=== PATIENT | male | born 1945 | race Caucasian/White ===

== ENCOUNTER → 2016-09-25 | Day surgery (SDC) | payer BC ==
[~2016-09-25] MED LIST: ACETAMINOPHEN/HYDROcodone 325 MG/5 MG TAB ONE; BUPIVACAINE/EPINEPHRINE 0.5% 50 ML VIAL ONE; LACTATED RINGER'S 1000 ML INJ 1,000 ML ONE; MIDAZOLAM HCL 2 MG/2 ML VIAL ONE; PROPOFOL 200 MG/20 ML AMP IV ONE; ceFAZolin INJ 1,000 MG VIAL ONE
--- NOTE | 2016-09-25 14:49 | TN ---
cc: AMANDA BOYD DATE OF SURGERY: 09/25/2016. Cc: Ancillary wound to be a ALL MINDY PREOPERATIVE DIAGNOSIS: 1. Internal derangement left knee. 2. Probable loose body left knee. POSTOPERATIVE DIAGNOSIS: 1. Loose body suprapatellar pouch, left knee. 2. Osteophyte left knee. 3. Degenerative tear of the medial meniscus, left knee. OPERATIVE PROCEDURE PERFORMED: 1. Arthroscopy, left knee. 2. Arthroscopic removal of loose body suprapatellar pouch. 3. Partial medial meniscectomy. SURGEON: Amanda oByd MD. ANESTHESIA: General. ESTIMATED BLOOD LOSS: Minimal. INDICATIONS FOR THE PROCEDURE: This patient is a 70-year-old male with catching, locking and pain. Investigative studies show evidence of A loose body IN THE cephalad portion of the knee in the suprapatellar pouch. He now presents for surgical treatment. DESCRIPTION OF THE PROCEDURE IN DETAIL: The patient was brought to the operating room and anesthetized in the supine position. The left leg was scrubbed with alcohol followed by Hibiclens followed Chloraprep and draped sterilely. The arthroscopy moss was utilized. A time-out was done. Antibiotics were given within one hour time window. Inflow was established anterior and laterally. The suprapatellar pouch was explored. There was a loose body in the cephalad portion that later on measured 1.5 x 1.2 cm. A spinal needle was introduced right adjacent to this. This was grabbed with a forceps grabber and then removed and taken to the back table to be sent out for pathology. The suprapatellar pouch was otherwise unremarkable. The right patellar surface showed grade 4 changes. There were no loose bodies in the medial or lateral gutters at that point. The medial compartment showed evidence of a degenerative medial meniscus tear with a small radial tear and fissuring. The anterior cruciate ligament was normal. The lateral compartment showed some degenerative changes with calcification consistent with probable gout versus chondrocalcinosis. A separate spinal needle was introduced along the medial joint line. A separate incision was made. Straight and angled punches were used to take the meniscus back to stable rim on the medial meniscus. A shaver was used to do some additional shaving of that region. A minor abrasion chondroplasty was performed. The wound was irrigated copiously. The portals were injected with 0.5% Marcaine with epinephrine. They were closed with Steri-Strips and Benzoin. A sterile dressing was applied. The patient was awakened and taken to the recovery room in satisfactory condition. MD KEVIN Burdick/DEBBI /2:30 PM /2:41 PM
== END | disposition home or self-care (01) ==
LOC: ESDC 11:39
PROVIDERS: ATTEND Orthopaedic Surgery Orthopaedic Surgery of the Spine
DX: S83.242A Other tear of medial meniscus, current injury, left knee, initial encounter (principal); M25.762 Osteophyte, left knee
CPT/HCPCS: 01400; 29881; 88300; 88304; 88311; J0690; J2250; J3010; J7120

== ENCOUNTER 2016-11-26 15:56 | Inpatient (IN) | payer MEDICARE ==
[~2016-11-26] VITALS: Ht 182.9 cm; Wt 84.7 kg
[2016-11-30] MEDS ORDERED: ALPR0.25 PO (10:17)
[2016-11-30] MEDS ORDERED: GRAP50CA3 PO (10:17)
[2016-11-30] MEDS ORDERED: DICL75TA PO (10:17)
[2016-11-30] MEDS ORDERED: ASPI-110 PO (10:17)
[2016-11-30] MEDS ORDERED: CYAN50003 PO (10:17)
[2016-11-30] MEDS ORDERED: OMEP40CA2 PO (10:17)
[2016-11-30] MEDS ORDERED: TURM500C3 PO (10:17)
[2016-11-30] MEDS ORDERED: AMLO5TAB2 PO (10:17)
[2016-11-30] MEDS ORDERED: GLUCTAB6 PO (10:17)
[2016-11-30] MEDS ORDERED: LISI40TA PO (10:17)
[2016-12-08 07:32] VITALS: BP 142/75; PULSE 61; RESP 20; TEMP 98.2; O2SAT 96
[2016-12-08] MEDS ORDERED: VANCOMYCIN HCL 1000 MG VIAL ONE (07:35)
[2016-12-08] MEDS ORDERED: SODIUM CHLOR 0.9% 250 ML INJ 250 ML ONE (07:35)
[2016-12-08] MEDS ORDERED: EXPAREL PERI-ARTICULAR INJECTION (TOTAL VOL. 60 ML) P-ARTICULR SCH ×2 (08:00)
[2016-12-08] MEDS ORDERED: METOPROLOL TARTRATE 25 MG TAB PO PRN (08:00)
[2016-12-08] MEDS ORDERED: CHLORHEXIDINE GLUCONATE 2 % 1 PACK (2 CLOTHS) TOPICAL PRN (08:00)
[2016-12-08] MEDS ORDERED: LACTATED RINGER'S 1000 ML IV PRN (08:00)
[2016-12-08] MEDS ORDERED: TRANEXAMIC ACID INJ 807 MG in SODIUM CHLORIDE 0.9% INJ 100 ML IV SCH ×2 (08:00→12:45)
[2016-12-08] MEDS ORDERED: INSULIN HUMAN REGULAR 1,000 UNITS/10 ML VIAL SQ PRN (08:00)
[2016-12-08] MEDS ORDERED: POVIDONE IODINE 5% (ANTISEPSIS KIT) 4 APPLICATIONS EACH NARE PRN (08:00)
[2016-12-08] MEDS ORDERED: VANCOMYCIN 1000 MG/NS 250 ML (for <70 kg) IV SCH ×2 (08:00)
[2016-12-08] MEDS ORDERED: ceFAZolin 2 GM PREMIX 50 ML IV SCH (08:00)
[2016-12-08] MEDS ORDERED: POVIDONE IODINE 7.5% SCRUB 118 ML BOTTLE TOPICAL SCH (08:00)
[2016-12-08] MEDS ORDERED: SODIUM CHLORID 0.9% 500 ML IV PRN (08:00)
--- NOTE | 2016-12-08 08:17 | MH ---
cc: AMANDA BOYD M.D. DATE OF ADMISSION: 12/08/2016 ADMITTING DIAGNOSIS Left hip osteoarthritis. HISTORY This is a 70-year-old male with significant left hip pain. Investigative studies show evidence of extensive arthritis of the left hip. Despite conservative care the patient is painful and symptomatic. He presents now for surgical treatment. PAST MEDICAL HISTORY, SOCIAL HISTORY, FAMILY HISTORY, REVIEW OF SYSTEMS See attached notes. PHYSICAL EXAMINATION GENERAL: A 70-year-old male in moderate distress with his left hip. HEENT: Normocephalic, atraumatic. Pupils equal, round, reactive to light and accommodation. Extraocular motions intact. NECK: Supple. CHEST: Clear. HEART: Regular rate and rhythm. ABDOMEN: Soft, nontender with normoactive bowel sounds. MUSCULOSKELETAL EXAMINATION: Left hip pain with range of motion, especially with internal and external rotation. Mild flexion contracture is seen. Neurologic and vascular examination is within normal limits. IMPRESSION Osteoarthritis left hip. PLAN Left total hip replacement plasty CONSENT There are risks with surgery including infection, bleeding, loss of motion, continued pain, need for further surgery, neurologic and vascular injury. The patient understands these issues and wishes to press on with surgery as outlined above. MD KEVIN Burdick/DOLORES /10:48 PM /8:17 AM
[2016-12-08] MEDS ORDERED: GENTAMICIN SULFATE 80 MG/2 ML VIAL ONE (08:20)
[2016-12-08] MEDS ORDERED: ACETAMINOPHEN 1000 MG/100 ML VIAL IV ONE (08:24)
[2016-12-08] MEDS ORDERED: MIDAZOLAM HCL 2 MG/2 ML VIAL ONE (08:59)
[2016-12-08] MEDS ORDERED: FAMOTIDINE 20 MG/2 ML VIAL ONE (08:59)
--- NOTE | 2016-12-08 11:48 | EKG ---
Date Performed: 12/08/2016 Time Performed: 08:07:25 PTAGE: 70 years EKG: SINUS BRADYCARDIA BORDERLINE LEFT AXIS DEVIATION INCOMPLETE RIGHT BUNDLE BRANCH BLOCK GABRIELLE STEINBERG ECG NO PREVIOUS TRACING DOCTOR: Reagan Cassidy Interpretating Date/Time 12/08/2016 11:47:15
--- NOTE | 2016-12-08 12:28 | PD.OP ---
cc: Kamron Thompson MD Operative Report Date of Surgery: Dec 08, 2016 Preoperative Diagnosis: Osteoarthritis left hip, severe. Left hip acetabular dysplasia, severe Postoperative Diagnosis: Same Procedure: Left total hip replacement arthroplasty, direct anterior exposure Anesthesia: Gen. Surgeon: Kamron Thompson Pharmaceutical Sales Representative(s): ROSA Rhoades Operation and Findings: EBL: 500 cc INDICATION: This patient presents with significant hip pain related to severe osteoarthritis of left hip with evidence of acetabular dysplasia and very large circumferential osteophytes. Despite extensive conservative care this patient continues to be painful and now presents for surgical treatment. NOTE: Martha Rhoades PA-C was present for the entire surgical procedure as my first leveler. In my medical opinion her skill and care was necessary for the proper management of this patient. COMPONENTS: COMPANY: [employer] CUP: [place], 56, 100 series, gription surface LINER: Altrx 36+4, neutral STEM: Corail, size 13, standard offset, hydroxyapatite-coated HEAD: +8.5, 36, 12/14 taper PROCEDURE: This patient was brought to the operating room and anesthetized in the supine position and positioned on the fracture table with both legs held extended. The left hip and leg was scrubbed with alcohol followed by Hibiclens followed by ChloraPrep and draped sterilely. Antibiotics were given within routine time window and a timeout was done. A 4 inch incision was made starting 2 cm distal and 2 cm lateral to the anterior superior iliac spine. The fascia vasquez was opened longitudinally. The interval between the fascia vasquez and the rectus was opened down to the capsule of the hip joint. Retractors were positioned allowing good visualization of the capsule. This was opened longitudinally and flaps were created. Stay sutures were utilized. Exposure was excellent. The neck was cut at the proper location using fluoroscopy as a guide. The head was removed. Deep retractors were positioned allowing good visualization of the acetabulum. There were large circumferential osteophytes. An osteotome was used to remove some of anterior osteophytes allowing better exposure. We were able to start a small cup and a very low position and under fluoroscopy were able to confirm bringing it down to the floor in the normal to slightly high center rotation. Acetabulum was deepened down to the floor starting with a proper size reamer and reaming up to 55 mm. A trial was utilized. Fluoroscopy was used to check position and confirmed satisfactory alignment. The rim was reamed with a 56 mm reamer and the final cup was positioned in approximately 20 of anteversion and 40-45 of abduction. Position was satisfactory. A single hole eliminator was positioned followed by the final liner. The lifting hook was utilized. The leg was dropped to the floor, maximally externally rotated and brought across the midline. Retractors were positioned. A box osteotome was utilized followed by progressive broaching to the proper stem size. Trial reduction showed excellent alignment and fit. With 60 of external rotation the leg was dropped to the floor without evidence of anterior subluxation. The wound was irrigated. The final stem was inserted and was found to be very stable. The final reduction using the final head. Stability was as previously noted. Intraoperative x-rays were taken. The wound was irrigated copiously. Hemostasis was controlled. Local anesthesia was utilized. The capsule was repaired with #2 Tycron sutures. The fascia vasquez was repaired with running 0 PDS on a loop. Subcutaneous tissue was approximated with 2-0 Vicryl and skin with running intradermal 3-0 Vicryl followed by Steri-Strips. A sterile dressing was applied. The patient was awakened and taken to the recovery room in satisfactory condition. FINDINGS: There was a large circumferential osteophytes anterior inferior cephalad and posterior which were removed with an osteotome and Montes. We used a +4 liner to bring the hip center down because of medial cup placement allowing proper cephalad coverage because the patient is loss of bone related to acetabular dysplasia. The final solution allowed us to lengthen this leg by approximately 11-12 mm. We compared intraoperatively to the contralateral normal right hip aching fluoroscopic images and ensuring that we brought the leg down to the proper position. Kamron Thompson MD Dec 08, 2016 12:28
[2016-12-08] MEDS ORDERED: SODIUM CHLORIDE 0.9% FLUSH 5 ML FLUSH IVF PRN (12:30)
[2016-12-08] MEDS ORDERED: MORPHINE SULFATE 8 MG/ML INJ IM PRN (12:30)
[2016-12-08] MEDS ORDERED: ACETAMINOPHEN/HYDROcodone 325 MG/7.5 MG TAB PO PRN (12:30)
[2016-12-08] MEDS ORDERED: MISCELLANEOUS PHARMACY INFORMATION XX ONE (12:30)
[2016-12-08] MEDS ORDERED: Post-op Orders (for Pharmacy) MISC XX ONE (12:30)
[2016-12-08] MEDS ORDERED: MISCELLANEOUS NURSING INFORMATION XX PRN (12:30)
[2016-12-08] MEDS ORDERED: MORPHINE SULFATE 30 MG/30 ML PCA IV SCH (12:30)
[2016-12-08] MEDS ORDERED: ALPRAZolam 0.25 MG TAB PO PRN (12:30)
[2016-12-08] MEDS ORDERED: NALOXONE HCL 0.4 MG/ML AMP IV PRN (12:30)
[2016-12-08] MEDS ORDERED: XARE10TA PO (12:31)
[2016-12-08] MEDS ORDERED: HYDR-3580 PO (12:31)
[2016-12-08] MEDS ORDERED: TRANEXAMIC ACID INJ 800 MG in SODIUM CHLORIDE 0.9% INJ 100 ML IV SCH (12:35)
[2016-12-08] MEDS: LACTATED RINGER'S 1000 ML INJ 1,000 ML IV SCH (12:58)
[2016-12-08] MEDS ORDERED: fentaNYL CITRATE 250 MCG/5 ML AMP ONE (13:03)
[2016-12-08] MEDS ORDERED: *morphine SULFATE 8 MG/ML PERIprocedure ONLY ONE (13:08)
[2016-12-08] MEDS ORDERED: PHENYLEPH/NS 1000 MCG/10 ML SYR IV ONE (13:35)
[2016-12-08] MEDS ORDERED: NEOSTIGMINE 3 MG/3 ML SYR IV ONE (13:35)
[2016-12-08] MEDS ORDERED: ePHEDrine/NS 25 MG/5 ML SYR IV ONE (13:35)
[2016-12-08] MEDS ORDERED: PROPOFOL 200 MG/20 ML AMP IV ONE (13:35)
[2016-12-08] MEDS ORDERED: ONDANSETRON HCL 4 MG/2 ML VIAL IV PUSH ONE (13:35)
[2016-12-08] MEDS ORDERED: LACTATED RINGER'S 1000 ML INJ 1,000 ML IV ONE (13:36)
[2016-12-08] MEDS: PCA - TOTAL MG MORPHINE DELIVERED PER SHIFT SCH ×2 (14:00→22:00)
--- NOTE | 2016-12-08 14:45 | RADRPT ---
EXAM DATE/TIME: 12/08/2016 10:37 [facility] COMPARISON: No previous studies available for comparison. INDICATIONS : Left total hip replacement. MEDICAL HISTORY : Unobtainable. SURGICAL HISTORY : Unobtainable. ENCOUNTER: Initial ACUITY: 1 day PAIN SCORE: Non-responsive. LOCATION: Left hip. FINDINGS: A left hip replacement has been performed. The prosthesis appears to be in good position. CONCLUSION: Status post left hip replacement with prosthesis in good position. Mervin Mccoy MD on December 08, 2016 at 14:23 Board Certified Radiologist. This report was verified electronically.
[2016-12-08 17:10] VITALS: BP 106/63; PULSE 78; RESP 18; TEMP 96.9; O2SAT 98
[2016-12-08 20:10] VITALS: BP 113/64; PULSE 83; RESP 17; TEMP 97.7; O2SAT 100
[2016-12-08] MEDS: MAGNESIUM HYDROXIDE SUSP 30 ML CUP PO SCH (20:59)
[2016-12-08] MEDS: SODIUM CHLORIDE 0.9% FLUSH 5 ML FLUSH IVF SCH (20:59)
[2016-12-08] MEDS: SENNOSIDES 8.6 MG TAB PO SCH (20:59)
[2016-12-08 23:45] VITALS: BP 114/65; PULSE 86; RESP 17; TEMP 97; O2SAT 99
[2016-12-09 04:05] VITALS: BP 118/62; PULSE 78; RESP 16; TEMP 96.5; O2SAT 99
[2016-12-09] MEDS: LACTATED RINGER'S 1000 ML INJ 1,000 ML IV SCH ×2 (04:43→20:21)
[2016-12-09] MEDS: PCA - TOTAL MG MORPHINE DELIVERED PER SHIFT SCH (06:00)
[2016-12-09 06:57] LABS: HEMATOCRIT 28.2 % (39.0-51.0); REVIEW FLAG FINAL
[2016-12-09 08:00] VITALS: BP 124/71; PULSE 93; RESP 18; TEMP 98.7; O2SAT 97
--- NOTE | 2016-12-09 08:33 | HHI.FF ---
Face to Face Verification Diagnosis: (1) Left hip pain (2) Osteoarthritis of left hip Physical Therapy Gait training, Safety evaluation, Transfer training, bed to chair Hip: Total hip, Protocol: Left, Progress to weight bearing Left LE Weight Bearing: WB as tolerated Additional Instructions PT 4 days/wk for 2 weeks. WBAT LLE. Anterior keanu precautions. Gait training / transfers. Nursing RN Days per Week: 2 x Week(s): 1 Dressing Changes: Do not change dressing Additional Instructions RN 2x/week for 1 week. Hold dressing changes unless saturated. Vitals assessment. I have seen patient Michael Salter on 12/09/16. My clinical findings support the need for the requested home health care services because: Limited ability to care for self High risk of falls I certify that my clinical findings support that this patient is homebound because: Post-op weakness Unsteady gait/balance Colleen Kerr Dec 09, 2016 08:33
[2016-12-09] MEDS: MAGNESIUM HYDROXIDE SUSP 30 ML CUP PO SCH ×2 (08:48→20:16)
[2016-12-09] MEDS: PANTOPRAZOLE SOD 40 MG DELAYED RELEASE TAB PO SCH (08:48)
[2016-12-09] MEDS: amLODIPine BESYLATE 5 MG TAB PO SCH (08:48)
[2016-12-09] MEDS: SODIUM CHLORIDE 0.9% FLUSH 5 ML FLUSH IVF SCH ×2 (08:49→20:21)
[2016-12-09] MEDS: LISINOPRIL 20 MG TAB PO SCH (08:50)
[2016-12-09] MEDS: ACETAMINOPHEN/HYDROcodone 325 MG/7.5 MG TAB PO PRN ×3 (09:54→18:32)
[2016-12-09 10:09] VITALS: O2SAT 96
[2016-12-09 11:46] VITALS: BP 109/61; PULSE 90; RESP 18; TEMP 97.2; O2SAT 97
[2016-12-09] MEDS: RIVAROXABAN 10 MG TAB PO SCH (12:01)
[2016-12-09] MEDS ORDERED: WALKER WHEELS/F1 MIS (13:16)
[2016-12-09] MEDS ORDERED: COMMODE 3-IN-11 MIS (13:16)
--- NOTE | 2016-12-09 13:19 | PD.ORT.PN ---
Subjective Subjective Remarks He had moderate left hip pain. He struggled with walking w PT today. He prefers d/c home but he and his are not sure at this time. No other complaints. No CP or SOB. Urinating. No new leg pain. Objective Vitals Vital Signs Date Time Temp Pulse Resp B/P Pulse Ox O2 Delivery O2 Flow Rate FiO2 12/09/16 11:46 97.2 90 18 109/61 97 12/09/16 10:09 96 Nasal Cannula 2.00 12/09/16 08:00 98.7 93 18 124/71 97 12/09/16 04:05 96.5 78 16 118/62 99 12/08/16 23:45 97.0 86 17 114/65 99 12/08/16 20:10 97.7 83 17 113/64 100 12/08/16 17:10 96.9 78 18 106/63 98 12/08/16 17:00 97.7 87 13 105/59 98 Nasal Cannula 2 12/08/16 16:00 81 17 109/57 98 Nasal Cannula 2 12/08/16 15:00 80 14 108/56 98 Nasal Cannula 2 12/08/16 14:00 79 18 111/56 95 Nasal Cannula 2 12/08/16 13:30 69 18 109/60 96 Nasal Cannula 3 I/O 12/08/16 12/08/16 12/08/16 12/09/16 12/09/16 12/09/16 07:00 15:00 23:00 07:00 15:00 23:00 Intake Total 1800 ml 932 ml 668 ml 240 ml Output Total 800 ml 535 ml 300 ml Balance 1000 ml 397 ml 668 ml -60 ml Intake Oral 250 ml 240 ml IV Total 682 ml 668 ml Other 1800 ml Output Urine Total 300 ml 535 ml 300 ml Estimated Blood Loss 500 ml # Bowel Movements 0 0 Result Diagram: 12/09/16 0535 Objective Remarks Sitting up in chair at bedside NAD VSS LLE Dressing c/d/i, no significant drainage, mild swelling, no erythema thigh and calf supple, neg homans +motor at, +sens, +nvi Assessment & Plan Ortho Post Op Day #: 1 Problem List: Assessment and Plan pod#1 s/p L LENORE, anterior approach D/C [facility] - change to po meds. Xarelto 10mg qd for 25 days. Hold dressing changes unless saturated. PT - WBAT LLE. Anterior lenore precautions. D/C planning, prefers HHC but may need SNF. F2F written. DME written. Colleen Kerr Dec 09, 2016 13:19
[2016-12-09 15:54] VITALS: BP 118/62; PULSE 96; RESP 18; TEMP 98.6; O2SAT 96
[2016-12-09] MEDS: SENNOSIDES 8.6 MG TAB PO SCH (20:16)
[2016-12-09 22:02] VITALS: BP 105/58; PULSE 94; RESP 18; TEMP 97.2; O2SAT 95
[2016-12-10 00:55] VITALS: BP 111/57; PULSE 103; RESP 18; TEMP 97.1; O2SAT 96
[2016-12-10] MEDS: ACETAMINOPHEN/HYDROcodone 325 MG/7.5 MG TAB PO PRN (07:07)
[2016-12-10 08:00] VITALS: BP 99/65; PULSE 83; RESP 18; TEMP 98.4; O2SAT 94
--- NOTE | 2016-12-10 08:33 | HHI.DCPOC ---
Discharge Care Plan Diagnosis: (1) Left hip pain (2) Osteoarthritis of left hip Your Health Problems Are: Incision/Drains Inflammation Goals to Promote Your Health * To prevent worsening of your condition and complications * To maintain your health at the optimal level Directions to Meet Your Goals Take your medications as prescribed Follow your dietary instruction Follow activity as directed Keep your appointments as scheduled Take your immunizations and boosters as scheduled If your symptoms worsen call your PCP, if no PCP go to Urgent Care Center or Emergency Room Smoking is Dangerous to Your Health. Avoid second hand smoke Call the 24-hour hour crisis hotline for domestic abuse at Colleen Kerr Dec 10, 2016 08:33
--- NOTE | 2016-12-10 08:34 | HHI.DS ---
Discharge Summary Admission Date Dec 08, 2016 at 06:39 Discharge Date: Dec 10, 2016 Admitting Diagnosis see below Diagnosis: (1) Left hip pain Diagnosis: Principal (2) Osteoarthritis of left hip Diagnosis: Principal Procedures Left total hip arthroplasty, Direct anterior approach Brief History This is a 70 year old male patient with a history of left hip pain for 6-7 years. He was diagnosed with severe osteoarthritis of his left hip in 2010. He was treated conservatively for many years with OTC medications and therapy. He began using a cane off and on 2 years ago to assist him in ambulating even short distances. He attempted using prescription diclofenac earlier this year but this did not improve his pain. Xrays were updated and they continued to show severe arthritis. Surgical treatment was recommended in the form of left total hip arthroplasty and he elected to move forward. CBC/BMP: 12/09/16 0535 Significant Findings Laboratory Tests Test 12/09/16 05:35 Hemoglobin 9.7 GM/DL (13.0-17.0) Hematocrit 28.2 % (39.0-51.0) PE at Discharge Sitting up in chair at bedside NAD VSS LLE Dressing c/d/i, no significant drainage, mild swelling, no erythema thigh and calf supple, neg homans +motor at, +sens, +nvi Hospital Course Surgical treatment was performed on the day of admission without complication. He recovered well in PACU and was transferred to the orthopaedic floor. Pain was controlled with IV and oral medications. DVT prophylaxis was initiated with Xarelto pod#1. He was compliant with physical therapy and all precautions. After 2 days he was found to be stable and discharged home with home health care. He was instructed to continue therapy, continue his xarelto for 25 days and to pursue a high fiber diet for 3-5 days. Pt Condition on Discharge: Stable Discharge Disposition: Disch w/ Home Health Serv Discharge Instructions Diet Instructions: As Tolerated, No Restrictions, High Fiber Diet Activities You Can Perform: Weight Bearing as Thien Activities to Avoid: Strenuous Activity Additional Activity Instruc.: LENORE protocol New Medications: Commode 3-in-1 (Commode 3-in-1) 1 Mis Mis 1 EA .ROUTE DIRECTED #1 Ref 0 EA Walker with Front Wheels (Walker with Front Wheels) 1 Mis Mis 1 EA .ROUTE DIRECTED #1 Ref 0 EA Hydrocodone-Acetaminophen (Hydrocodone-Acetaminophen) 7.5-325 mg Tab 1 TAB PO Q4H PRN PAIN LESS THAN 5 ON SCALE #50 TAB Rivaroxaban (Xarelto) 10 Mg Tab 10 MG PO Q24H Prevent Blood Clot #25 TAB Continued Medications: Alprazolam (Alprazolam) 0.25 Mg Tab 0.25 MG PO Q6H PRN ANXIETY Ref 0 TAB Amlodipine (Amlodipine) 5 Mg Tab 5 MG PO DAILY Blood Pressure Management #[address] Ref [address] (Aspirin 81) 81 Mg Tabdr 81 MG PO DAILY Ref 0 TAB Cyanocobalamin (Vitamin B-12) (Vitamin B-12) 5,000 Mcg Tab.subl 2500 MCG PO DAILY Mabjbbzecka-Vxypfpsrjcn-Sdz C- (Glucosamine Chondroitin) 1 Tab Tab 1500 MG PO TID Grape Seed Extract (Grape Seed Extract) 50 Mg Capsule 50 MG PO DAILY Lisinopril (Lisinopril) 40 Mg Tab 40 MG PO DAILY Blood Pressure Management #30 Ref 0 TAB Omeprazole (Omeprazole) 40 Mg Cap 40 MG PO DAILY #30 Ref 0 CAP Turmeric (Curcuma Longa) (Turmeric) 500 Mg Cap 500 MG PO DAILY Discontinued Medications: Diclofenac Sodium DR (Diclofenac Sodium DR) 75 Mg Tabdr 75 MG PO DAILY #30 Ref 0 TAB Colleen Kerr Dec 10, 2016 08:34
--- NOTE | 2016-12-10 08:35 | PD.ORT.PN ---
Subjective Subjective Remarks Still has moderate left hip pain but more tolerable today. Was able to ambulate independently w the walker to the restroom several times last night and this morning. He feels more confident. No other complaints. No CP or SOB. Urinating. No new leg pain. Objective Vitals Vital Signs Date Time Temp Pulse Resp B/P Pulse Ox O2 Delivery O2 Flow Rate FiO2 12/10/16 00:55 97.1 103 18 111/57 96 12/09/16 22:02 97.2 94 18 105/58 95 12/09/16 15:54 98.6 96 18 118/62 96 12/09/16 11:46 97.2 90 18 109/61 97 12/09/16 10:09 96 Nasal Cannula 2.00 I/O 12/09/16 12/09/16 12/09/16 12/10/16 12/10/16 12/10/16 07:00 15:00 23:00 07:00 15:00 23:00 Intake Total 668 ml 1200 ml 360 ml 480 ml Output Total 550 ml Balance 668 ml 650 ml 360 ml 480 ml Intake Oral 1200 ml 360 ml 480 ml IV Total 668 ml Output Urine Total 550 ml # Voids 1 2 2 # Bowel Movements 0 0 2 Result Diagram: 12/09/16 0535 Procedures Left total hip arthroplasty, Direct anterior approach Objective Remarks Sitting up in chair at bedside NAD VSS LLE Dressing c/d/i, no significant drainage, mild swelling, no erythema thigh and calf supple, neg homans +motor at, +sens, +nvi Assessment & Plan Ortho Post Op Day #: 2 Problem List: (1) Left hip pain (2) Osteoarthritis of left hip Assessment and Plan pod#2 s/p L LENORE, anterior approach Ortho stable. Likely ok to d/c home w c later today after PT. PO pain meds as needed. Xarelto 10mg qd for 25 days. Hold dressing changes unless saturated. PT - WBAT LLE. Anterior lenore precautions. F/U in 2weeks as scheduled. F2F written. DME written. Colleen Kerr Dec 10, 2016 08:35
[2016-12-10] MEDS: MAGNESIUM HYDROXIDE SUSP 30 ML CUP PO SCH (08:41)
[2016-12-10] MEDS: SODIUM CHLORIDE 0.9% FLUSH 5 ML FLUSH IVF SCH (08:41)
[2016-12-10] MEDS: LISINOPRIL 20 MG TAB PO SCH (08:42)
[2016-12-10] MEDS: PANTOPRAZOLE SOD 40 MG DELAYED RELEASE TAB PO SCH (08:42)
[2016-12-10] MEDS: amLODIPine BESYLATE 5 MG TAB PO SCH (08:42)
[2016-12-10 09:53] VITALS: O2SAT 96
[2016-12-10] MEDS: RIVAROXABAN 10 MG TAB PO SCH (11:50)
[2016-12-10 12:00] VITALS: BP 137/70; PULSE 85; RESP 18; TEMP 97.6; O2SAT 97
[2016-12-10] MEDS: LACTATED RINGER'S 1000 ML INJ 1,000 ML IV SCH (12:31)
== END 2016-12-10 16:22 | disposition home health service (06) | DRG 470 ==
LOC: HSDI 12-08 06:39 → N06A 12-08 17:16
PROVIDERS: ADMIT Orthopaedic Surgery Orthopaedic Surgery of the Spine; ATTEND Orthopaedic Surgery Orthopaedic Surgery of the Spine
PROC: 0SRB0JZ Replacement of Left Hip Joint with Synthetic Substitute, Open Approach (ICD-10-PCS; principal; 2016-12-08 09:03)
DX: M16.12 Unilateral primary osteoarthritis, left hip (principal); I10 Essential (primary) hypertension; M25.752 Osteophyte, left hip; Q65.89 Other specified congenital deformities of hip
CPT/HCPCS: 36415; 73502; 76000; 85014; 85018; 86850; 86900; 86901; 86920; 93005; 94150; C1776; C9290; J0131; J0690; J1580; J2250; J2270; J2370; J2405; J2710; J3010; J3370; J7050; J7120

== ENCOUNTER → 2016-11-30 | Outpatient (CLI) | payer BC, MEDICARE ==
[~2016-11-30] MED LIST changes: -ACETAMINOPHEN/HYDROcodone 325 MG/5 MG TAB ONE; +ALPR0.25 PO; +AMLO5TAB2 PO; +ASPI-110 PO; -BUPIVACAINE/EPINEPHRINE 0.5% 50 ML VIAL ONE; +COMMODE 3-IN-11 MIS; +CYAN50003 PO; +DICL75TA PO; +GLUCTAB6 PO; +GRAP50CA3 PO; +HYDR-3580 PO; -LACTATED RINGER'S 1000 ML INJ 1,000 ML ONE; +LISI40TA PO; -MIDAZOLAM HCL 2 MG/2 ML VIAL ONE; +OMEP40CA2 PO; -PROPOFOL 200 MG/20 ML AMP IV ONE; +TURM500C3 PO; +WALKER WHEELS/F1 MIS; +XARE10TA PO; -ceFAZolin INJ 1,000 MG VIAL ONE
== END ==
LOC: CPRE 09:00
PROVIDERS: ATTEND Orthopaedic Surgery Orthopaedic Surgery of the Spine
DX: M16.12 Unilateral primary osteoarthritis, left hip (principal)

== ENCOUNTER 2017-09-23 07:33 | Inpatient (IN) | payer MEDICARE ==
[~2017-09-23] VITALS: Ht 185.4 cm; Wt 89.2 kg
[~2017-09-23 07:33] MED LIST changes: -ASPI-110 PO; +ASPI1TAB57 PO; -CYAN50003 PO; -DICL75TA PO; -GLUCTAB6 PO; -HYDR-3580 PO; +LOVA20TA PO; +VITA100022 PO; -XARE10TA PO
[2017-09-23] MEDS ORDERED: GENTAMICIN SULFATE 80 MG/2 ML VIAL ONE (07:58)
[2017-09-23] MEDS ORDERED: LACTATED RINGER'S 1000 ML IV PRN (08:00)
[2017-09-23] MEDS ORDERED: INSULIN HUMAN REGULAR 1,000 UNITS/10 ML VIAL SQ PRN (08:00)
[2017-09-23] MEDS ORDERED: SODIUM CHLORID 0.9% 500 ML IV PRN (08:00)
[2017-09-23] MEDS ORDERED: POVIDONE IODINE 5% (ANTISEPSIS KIT) 4 APPLICATIONS EACH NARE PRN (08:00)
[2017-09-23] MEDS ORDERED: CHLORHEXIDINE GLUCONATE 2 % 1 PACK (2 CLOTHS) TOPICAL PRN (08:00)
[2017-09-23] MEDS ORDERED: METOPROLOL TARTRATE 25 MG TAB PO PRN (08:00)
[2017-09-23] MEDS ORDERED: TRANEXAMIC ACID IV SCH (08:15)
[2017-09-23] MEDS ORDERED: VANCOMYCIN 1 GM/200 ML PREMIX IV SCH (08:15)
[2017-09-23] MEDS ORDERED: CHLORHEXIDINE GLUCONATE 4% SOLN 120 ML BTL TOPICAL SCH (08:15)
[2017-09-23] MEDS ORDERED: SODIUM CHLORIDE 0.9% IV SCH (08:15)
[2017-09-23] MEDS ORDERED: EXPAREL PERI-ARTICULAR INJECTION (TOTAL VOL. 60 ML) P-ARTICULR SCH ×2 (08:15)
[2017-09-23] MEDS ORDERED: ceFAZolin 2 GM in NS 100 ML IV SCH (08:15)
[2017-09-23] MEDS ORDERED: VANCOMYCIN 1000 MG/NS 250 ML ON-CALL IV SCH ×2 (09:30)
[2017-09-23] MEDS ORDERED: BUPIVACAINE HCL PF 0.25% 30 ML VIAL ONE (11:04)
[2017-09-23] MEDS ORDERED: LACTATED RINGER'S 1000 ML INJ 1,000 ML IV ONE (12:00)
[2017-09-23] MEDS ORDERED: PHENYLEPH/NS 1000 MCG/10 ML SYR IV ONE (12:00)
[2017-09-23] MEDS ORDERED: LIDOCAINE HCL 1% PF 5 ML SYRINGE OTHER ONE (12:00)
[2017-09-23] MEDS ORDERED: NEOSTIGMINE 5 MG/5 ML SYRINGE IV PUSH ONE (12:00)
[2017-09-23] MEDS ORDERED: ePHEDrine/NS 25 MG/5 ML SYRINGE IV ONE (12:00)
[2017-09-23] MEDS ORDERED: ceFAZolin INJ 1,000 MG VIAL IV ONE (12:00)
[2017-09-23] MEDS ORDERED: ONDANSETRON HCL 4 MG/2 ML VIAL IV ONE (12:00)
[2017-09-23] MEDS ORDERED: GLYCOPYRROLATE 1 MG/5 ML SYRINGE IV PUSH ONE (12:00)
[2017-09-23] MEDS ORDERED: DEXAMETHASONE SOD PHOS 4 MG/ML VIAL IV ONE (12:00)
[2017-09-23] MEDS ORDERED: PHENYLEPHRINE HCL 10 MG/ML VIAL IV ONE (12:00)
[2017-09-23] MEDS ORDERED: ROCURONIUM INJ 50 MG/5 ML SYRINGE IV PUSH ONE (12:00)
[2017-09-23] MEDS ORDERED: PROPOFOL 200 MG/20 ML AMP IV ONE (12:00)
--- NOTE | 2017-09-23 12:38 | PD.OP ---
cc: Kamron Thompson MD Operative Report Date of Surgery: September 23, 2017 Preoperative Diagnosis: Osteoarthritis right hip, severe Postoperative Diagnosis: Same Procedure: Right total hip replacement arthroplasty, direct anterior exposure Anesthesia: General Surgeon: Kamron Thompson Quarry Manager(s): ROSA Rhoades Operation and Findings: EBL: 300 cc INDICATION: This patient presents with significant hip pain related to severe osteoarthritis of the right hip. He had a previous left total hip replacement last year and is doing well.. Despite extensive conservative care this patient continues to be painful and now presents for surgical treatment. NOTE: Martha Rhoades PA-C was present for the entire surgical procedure as my assistant commissioner. In my medical opinion her skill and care was necessary for the proper management of this patient. COMPONENTS: COMPANY: [employer] CUP: [place], 56, 100 series, gription surface LINER: Altrx 36, neutral STEM: Corail, standard offset, size 14, hydroxyapatite-coated HEAD: 36 mm, +8.5, 12/14 taper PROCEDURE: This patient was brought to the operating room and anesthetized in the supine position and positioned on the fracture table with both legs held extended. The right hip and leg was scrubbed with alcohol followed by Hibiclens followed by ChloraPrep and draped sterilely. Antibiotics were given within routine time window and a timeout was done. A 4 inch incision was made starting 2 cm distal and 2 cm lateral to the anterior superior iliac spine. The fascia vasquez was opened longitudinally. The interval between the fascia vasquez and the rectus was opened down to the capsule of the hip joint. Retractors were positioned allowing good visualization of the capsule. This was opened longitudinally and flaps were created. Stay sutures were utilized. Exposure was excellent. The neck was cut at the proper location using fluoroscopy as a guide. The head was removed. Deep retractors were positioned allowing good visualization of the acetabulum. Acetabulum was deepened down to the floor starting with a proper size reamer and reaming up to 55 mm. A trial was utilized. Fluoroscopy was used to check position and confirmed satisfactory alignment. The rim was reamed with a 56 mm reamer and the final cup was positioned in approximately 20 of anteversion and 40-45 of abduction. Position was satisfactory. A single hole eliminator was positioned followed by the final liner. The lifting hook was utilized. The leg was dropped to the floor, maximally externally rotated and brought across the midline. Retractors were positioned. A box osteotome was utilized followed by progressive broaching to the proper stem size. Trial reduction showed excellent alignment and fit. With 60 of external rotation the leg was dropped to the floor without evidence of anterior subluxation. The wound was irrigated. The final stem was inserted and was found to be very stable. The final reduction using the final head. Stability was as previously noted. Intraoperative x-rays were taken. The wound was irrigated copiously. Hemostasis was controlled. Local anesthesia was utilized. The capsule was repaired with #2 Tycron sutures. The fascia vasquez was repaired with running 0 PDS on a loop. Subcutaneous tissue was approximated with 2-0 Vicryl and skin with running intradermal 3-0 Vicryl followed by Steri-Strips. A sterile dressing was applied. The patient was awakened and taken to the recovery room in satisfactory condition. FINDINGS: There was severe osteoarthritis of the right hip. The final solution appeared to be excellent. There was no complication that was appreciated Kamron Thompson MD September 23, 2017 12:38
[2017-09-23] MEDS ORDERED: ASPI325T33 PO (12:40)
[2017-09-23] MEDS ORDERED: HYDR-3583 PO (12:40)
[2017-09-23] MEDS ORDERED: ASPIRIN 81 MG CHEW TAB CHEW ONE (12:45)
[2017-09-23] MEDS ORDERED: Post-op Orders (for Pharmacy) XX ONE (12:45)
[2017-09-23] MEDS ORDERED: MORPHINE SULFATE 8 MG/ML INJ IM PRN (12:45)
[2017-09-23] MEDS ORDERED: NALOXONE HCL 0.4 MG/ML AMP IV PUSH PRN (12:45)
[2017-09-23] MEDS ORDERED: ALPRAZolam 0.25 MG TAB PO PRN (12:45)
[2017-09-23] MEDS ORDERED: MIDAZOLAM HCL 2 MG/2 ML VIAL ONE (13:05)
[2017-09-23] MEDS: LACTATED RINGER'S 1000 ML INJ 1,000 ML IV SCH (13:08)
[2017-09-23] MEDS ORDERED: *morphine SULFATE 4 MG/ML PERIprocedure ONLY ONE ×3 (13:12→13:23)
[2017-09-23] MEDS ORDERED: *HYDROmorphone PF 0.5 MG/0.5 ML PERIprocedure ONLY ONE ×2 (13:32→13:45)
[2017-09-23] MEDS ORDERED: ACETAMINOPHEN 1000 MG/100 ML 100 ML IV ONE ×2 (13:51→14:15)
[2017-09-23] MEDS ORDERED: DO NOT ADM ANY ANTICOAGULANT DRUGS PRN (14:00)
--- NOTE | 2017-09-23 15:26 | RADRPT ---
EXAM DATE/TIME: 09/23/2017 11:24 [facility] COMPARISON: No previous studies available for comparison. INDICATIONS : Placement of total right hip. MEDICAL HISTORY : None. SURGICAL HISTORY : None. Left total hip. ENCOUNTER: Initial ACUITY: 1 day PAIN SCORE: Non-responsive. LOCATION: Right Hip FINDINGS: A two view examination of the right hip was performed. There is postoperative right total hip replace ment. No complications. CONCLUSION: 1. Postoperative right total hip replacement. No complications identified. Luigi Rojo MD on September 23, 2017 at 15:20 Board Certified Radiologist. This report was verified electronically.
[2017-09-23 15:49] VITALS: BP 140/73; PULSE 67; RESP 19; TEMP 97.3; O2SAT 93
[2017-09-23 20:00] VITALS: BP 120/79; PULSE 86; RESP 18; TEMP 98.6; O2SAT 95
[2017-09-23] MEDS: ACETAMINOPHEN/HYDROcodone 325 MG/10 MG TAB PO PRN (21:41)
[2017-09-23] MEDS: SENNOSIDES 8.6 MG TAB PO SCH (21:41)
[2017-09-23] MEDS: ASPIRIN EC 325 MG TABEC PO SCH (21:42)
[2017-09-23] MEDS: MAGNESIUM HYDROXIDE SUSP 30 ML CUP PO SCH (21:45)
[2017-09-24] VITALS: BP 119/73; PULSE 77; RESP 17; TEMP 98.6; O2SAT 95
[2017-09-24 01:09] VITALS: O2SAT 95
[2017-09-24] MEDS: ACETAMINOPHEN/HYDROcodone 325 MG/10 MG TAB PO PRN ×5 (02:33→20:34)
[2017-09-24] MEDS: LACTATED RINGER'S 1000 ML INJ 1,000 ML IV SCH ×3 (02:37→20:36)
[2017-09-24 04:00] VITALS: BP 122/57; PULSE 72; RESP 17; TEMP 98.4; O2SAT 95
[2017-09-24 04:05] LABS: HEMATOCRIT 30.8 % (39.0-51.0); HEMOGLOBIN 10.7 GM/DL (13.0-17.0)
--- NOTE | 2017-09-24 07:38 | PD.ORT.PN ---
Subjective Subjective Remarks The patient looks good. Mild pain in right hip with range of motion. No complaints, otherwise Objective Vitals Vital Signs Date Time Temp Pulse Resp B/P (MAP) Pulse Ox O2 Delivery O2 Flow Rate FiO2 09/24/17 04:00 98.4 72 17 122/57 (78) 95 09/24/17 01:09 95 Nasal Cannula 2.00 09/24/17 00:00 98.6 77 17 119/73 (88) 95 09/23/17 20:00 98.6 86 18 120/79 (93) 95 09/23/17 15:49 97.3 67 19 140/73 (95) 93 09/23/17 14:15 97.6 64 13 118/65 (82) 96 Nasal Cannula 2 09/23/17 14:00 65 15 116/67 (83) 97 Nasal Cannula 2 09/23/17 13:45 63 15 127/78 (94) 98 Nasal Cannula 2 09/23/17 13:30 58 16 120/72 (88) 100 Nasal Cannula 2 09/23/17 13:15 60 13 130/69 (89) 100 Nasal Cannula 2 09/23/17 13:00 60 13 144/68 (93) 98 Nasal Cannula 2 09/23/17 12:56 97.5 62 16 117/62 (80) 99 Nasal Cannula 2 09/23/17 09:15 97.5 94 16 148/83 (104) 94 I/O 09/23/17 09/23/17 09/23/17 09/24/17 09/24/17 09/24/17 07:00 15:00 23:00 07:00 15:00 23:00 Intake Total 1802 ml 100 ml 450 ml Output Total 300 ml 300 ml Balance 1502 ml 100 ml 150 ml Intake Oral 0 ml 450 ml IV Total 202 ml 100 ml Other 1600 ml Output Urine Total 300 ml Estimated Blood Loss 300 ml # Voids 0 Result Diagram: 09/24/17 0343 Objective Remarks Lying in bed comfortably. Right hip incision with mild swelling. No drainage. No ecchymosis. No abnormal swelling. No calf tenderness. Neuro exam normal Assessment & Plan Assessment and Plan Osteoarthritis right hip. SURGERY: Right LENORE, direct anterior: POD #1. PLAN: Weightbearing as tolerated. No dressing change. Aspirin 81 mg twice daily for 30 days. [place] 10 for pain. Home with home health care. Probable discharge today Kamron Thompson MD September 24, 2017 07:38
--- NOTE | 2017-09-24 07:39 | HHI.DCPOC ---
Discharge Care Plan Diagnosis: (1) Primary osteoarthritis of right hip Goals to Promote Your Health * To prevent worsening of your condition and complications * To maintain your health at the optimal level Directions to Meet Your Goals Take your medications as prescribed Follow your dietary instruction Follow activity as directed Keep your appointments as scheduled Take your immunizations and boosters as scheduled If your symptoms worsen call your PCP, if no PCP go to Urgent Care Center or Emergency Room Smoking is Dangerous to Your Health. Avoid second hand smoke Call the 24-hour hour crisis hotline for domestic abuse at Kamron Thompson MD September 24, 2017 07:39
--- NOTE | 2017-09-24 07:41 | HHI.FF ---
Face to Face Verification Diagnosis: (1) Primary osteoarthritis of right hip Physical Therapy Gait training Hip: Total hip, Protocol: Right Right LE Weight Bearing: WB as tolerated Right LE Range of Motion: Active ROM Additional Instructions 7 days per week for 2 weeks Nursing RN: 3 days/week x 2 weeks Nursing: Other (Assess wound and lower extremity looking for any signs of complication, bleeding or DVT) Dressing Changes: Do not change dressing I have seen patient Michael Salter on 09/24/17. My clinical findings support the need for the requested home health care services because: Ltd mobility - disease progression High risk of falls I certify that my clinical findings support that this patient is homebound because: Post-op weakness Unsteady gait/balance Kamron Thompson MD September 24, 2017 07:41
--- NOTE | 2017-09-24 07:44 | HHI.DS ---
Discharge Summary Admission Date September 23, 2017 at 07:33 Discharge Date: September 24, 2017 Admitting Diagnosis Osteoarthritis right hip Diagnosis: (1) Primary osteoarthritis of right hip Diagnosis: Principal ICD Codes: M16.11 - Unilateral primary osteoarthritis, right hip Procedures Right total hip arthroplasty, direct anterior exposure: September 23, 2017 Brief History This is a 71 year old male patient with a history of previous left total hip replacement. He presents for elective hip replacement on the right for osteoarthritis. CBC/BMP: 09/24/17 0343 Significant Findings Laboratory Tests Test 09/24/17 03:43 Hemoglobin 10.7 GM/DL (13.0-17.0) Hematocrit 30.8 % (39.0-51.0) Imaging Intraoperative x-ray shows satisfactory alignment and position of the components PE at Discharge Lying in bed comfortably. Right hip incision with mild swelling. No drainage. No ecchymosis. No abnormal swelling. No calf tenderness. Neuro exam normal Hospital Course The patient was admitted electively for hip arthroplasty. He had an unremarkable course. He was taken to the operating room on the date of admission. He had an uncomplicated total hip replacement. He recovered in the recovery room and then transferred to the floor. On the floor his hemoglobin was normalized at greater than 10 postoperatively. He was up and ambulating with assistance. He is felt to be a candidate for discharge to home Pt Condition on Discharge: Good Discharge Disposition: Disch w/ Home Health Serv Discharge Instructions Diet Instructions: As Tolerated, No Restrictions Activities You Can Perform: Weight Bearing as Thien Activities to Avoid: Lifting/Bending, Strenuous Activity, Shower (For 5 days.) Additional Activity Instruc.: Usual precautions for anterior total hip Kamron Thompson MD September 24, 2017 07:44
[2017-09-24] MEDS ORDERED: WALKER/ADULT/FO1 MIS (07:46)
[2017-09-24 08:00] VITALS: BP 138/70; PULSE 75; RESP 16; TEMP 98; O2SAT 97
[2017-09-24] MEDS: PRAVASTATIN SOD 20 MG TAB PO SCH (08:32)
[2017-09-24] MEDS: MAGNESIUM HYDROXIDE SUSP 30 ML CUP PO SCH ×2 (08:32→20:34)
[2017-09-24] MEDS: PANTOPRAZOLE SOD 40 MG DELAYED RELEASE TAB PO SCH (08:33)
[2017-09-24] MEDS: LISINOPRIL 20 MG TAB PO SCH (08:33)
[2017-09-24] MEDS: ASPIRIN EC 325 MG TABEC PO SCH ×2 (08:34→20:33)
[2017-09-24] MEDS: amLODIPine BESYLATE 5 MG TAB PO SCH (08:34)
[2017-09-24 17:00] VITALS: BP 146/68; PULSE 80; RESP 16; TEMP 98; O2SAT 95
[2017-09-24 20:00] VITALS: BP 160/72; PULSE 90; RESP 18; TEMP 99.3; O2SAT 94
[2017-09-24] MEDS: SENNOSIDES 8.6 MG TAB PO SCH (20:33)
[2017-09-25] VITALS: BP 133/63; PULSE 94; RESP 18; TEMP 98.9; O2SAT 95
[2017-09-25] MEDS: ACETAMINOPHEN/HYDROcodone 325 MG/10 MG TAB PO PRN ×3 (00:45→10:49)
--- NOTE | 2017-09-25 06:59 | PD.ORT.PN ---
Subjective Subjective Remarks pt doing better, ready to go home today discharge was held yesterday due [facility] Objective Vitals Vital Signs Date Time Temp Pulse Resp B/P (MAP) Pulse Ox O2 Delivery O2 Flow Rate FiO2 09/25/17 00:00 98.9 94 18 133/63 (86) 95 09/24/17 20:00 99.3 90 18 160/72 (101) 94 09/24/17 17:00 98.0 80 16 146/68 (94) 95 09/24/17 08:00 98.0 75 16 138/70 (92) 97 I/O 09/24/17 09/24/17 09/24/17 09/25/17 09/25/17 09/25/17 07:00 15:00 23:00 07:00 15:00 23:00 Intake Total 450 ml 240 ml Output Total 300 ml 300 ml Balance 150 ml -60 ml Intake Oral 450 ml 240 ml Output Urine Total 300 ml 300 ml # Bowel Movements 1 Result Diagram: 09/24/17 0343 Procedures Right total hip arthroplasty, direct anterior exposure: September 23, 2017 Objective Remarks Lying in bed comfortably. Right hip incision clean and dry No calf tenderness. Neuro exam normal Assessment & Plan Problem List: (1) Primary osteoarthritis of right hip ICD Codes: M16.11 - Unilateral primary osteoarthritis, right hip Assessment and Plan Osteoarthritis right hip. SURGERY: Right LENORE, direct anterior: POD #2. PLAN: Weightbearing as tolerated. No dressing change. Aspirin 81 mg twice daily for 30 days. [place] 10 for pain. Home with home health care. Discharge home today Adan Thompson MD September 25, 2017 06:59
[2017-09-25 08:00] VITALS: BP 138/70; PULSE 85; RESP 16; TEMP 98.9; O2SAT 92
[2017-09-25] MEDS: amLODIPine BESYLATE 5 MG TAB PO SCH (08:27)
[2017-09-25] MEDS: PRAVASTATIN SOD 20 MG TAB PO SCH (08:28)
[2017-09-25] MEDS: PANTOPRAZOLE SOD 40 MG DELAYED RELEASE TAB PO SCH (08:28)
[2017-09-25] MEDS: ASPIRIN EC 325 MG TABEC PO SCH (08:28)
[2017-09-25] MEDS: LISINOPRIL 20 MG TAB PO SCH (08:29)
[2017-09-25] MEDS: MAGNESIUM HYDROXIDE SUSP 30 ML CUP PO SCH (08:29)
== END 2017-09-25 11:17 | disposition home health service (06) | DRG 470 ==
LOC: HSDI 07:33 → N06B 14:39
PROVIDERS: ADMIT Orthopaedic Surgery Orthopaedic Surgery of the Spine; ATTEND Orthopaedic Surgery Orthopaedic Surgery of the Spine
PROC: 0SR902A Replacement of Right Hip Joint with Metal on Polyethylene Synthetic Substitute, Uncemented, Open Approach (ICD-10-PCS; principal; 2017-09-23 10:04)
DX: M16.11 Unilateral primary osteoarthritis, right hip (principal); K22.70 Barrett's esophagus without dysplasia; E78.5 Hyperlipidemia, unspecified; M54.5 Low back pain; N40.0 Benign prostatic hyperplasia without lower urinary tract symptoms; M23.92 Unspecified internal derangement of left knee; Z96.642 Presence of left artificial hip joint; Z79.82 Long term (current) use of aspirin
CPT/HCPCS: 73502; 76000; 85014; 85018; 86850; 86900; 86901; 86920; 94150; C1776; J0131; J0690; J1100; J1170; J1580; J2250; J2270; J2370; J2405; J2710; J3010; J3370; J7050; J7120